=== PATIENT | female | born 1985 | race Caucasian/White ===

== ENCOUNTER 2017-11-24 21:30 | Inpatient (IN) | payer MEDICARE ==
[~2017-11-24] VITALS: Ht 162.6 cm; Wt 65.8 kg
[~2017-11-24 21:30] MED LIST: ASMANEX TW200 MICRO1 IH; FLONASE16 G1 BOTH NARES; PROAIR RESPICL90 MCG IH; XYZAL5 MG PO
[2017-11-25 09:06] VITALS: BP 124/67
[2017-11-25 13:04] VITALS: BP 123/78
[2017-11-25 14:00] VITALS: BP 114/67
[2017-11-25 14:15] VITALS: BP 126/69
== END 2017-11-25 14:25 | disposition home or self-care (01) | DRG 517 ==
LOC: ENRESERV 21:30 → CANRESERV 11-25 04:31 → 2SOUTH 11-25 07:23
PROVIDERS: Neurological Surgery
PROC: 0NB70ZZ Excision of Occipital Bone, Open Approach (ICD-10-PCS; principal; 2017-11-25)
DX: D16.4 Benign neoplasm of bones of skull and face (principal)
CPT/HCPCS: 81025; 88304; J0131; J0690; J2250; J3010; Q0175